=== PATIENT | male | born 1945 | race Caucasian/White ===

== ENCOUNTER 2022-09-30 11:04 | Outpatient (OUT) | payer MEDICARE, OTHER, SELFPAY ==
[2022-09-30 13:39] LABS: Prostate Specific Antigen Scrn 3.43 ng/mL (<=4.00)
[2022-09-30 16:40] LABS: Alanine Aminotransferase 33 U/L (16-63); Albumin Globulin Ratio 1.6; Albumin Level 4.3 g/dL (3.4-5.0); Alkaline Phosphatase 53 U/L (46-116); Anion Gap 13.5; Aspartate Amino Transferase 25 U/L (15-37); Bilirubin Total 0.6 mg/dL (0.2-1.0); Calcium 8.9 mg/dL (8.5-10.1); Carbon Dioxide 27.9 mmol/L (21.0-32.0); Chloride 106 mmol/L (98-107); Chol HDL Ratio 2.8; Cholesterol 136 mg/dL (<=200); Estimated GFR (African America >60 (>=60); Estimated GFR (Non-African Ame 55 (>=60); Globulin 2.7 g/dL; Glucose 91 mg/dL (74-106); HDL Cholesterol 48 mg/dL (40-60); LDL Cholesterol Calculated 68.4 mg/dL; Potassium 4.4 mmol/L (3.5-5.1); Sodium 143 mmol/L (136-145); Triglycerides 98 mg/dL (<=150); VLDL CHOLESTEROL 19.6 mg/dL
== END 2022-09-30 11:05 | disposition home or self-care (01) ==
PROVIDERS: PCP Internal Medicine
DX: E78.1 Pure hyperglyceridemia (principal); Z12.5 Encounter for screening for malignant neoplasm of prostate; I10 Essential (primary) hypertension
CPT/HCPCS: 36415; 80053; 80061; G0103

== ENCOUNTER 2023-02-25 09:36 | Outpatient (OUT) | payer MEDICARE, OTHER, SELFPAY ==
--- NOTE | 2023-02-25 10:01 | US_ITS ---
[address] [address] Patient Name: EVERARDO CHAVEZ MRN: [id number] date: 1945 Sex: M Assigned Patient Location: US Current Patient Location: US Accession/Order Number: [id number] Exam Date: 02/25/2023 10:10 Report Date: 02/25/2023 13:01 At the request of: ZITA BELLE Procedure: US scrotum EXAMINATION: US scrotum HISTORY: scrotum pain and swelling COMPARISON: No relevant comparison available. TECHNIQUE: High-resolution sonographic imaging of the scrotum and contents was performed. FINDINGS: The right testicle is normal in size, contour and homogeneous echotexture measuring 4.3 x 2.5 x 2.9 cm. No focal intratesticular mass. Normal color Doppler flow. The right epididymis is heterogeneous with punctate areas of hyperechogenicity likely representing calcification. No hypervascularity or focal mass. No right varicocele. Moderate right hydrocele. The left testicle is normal in size, contour and homogeneous echotexture measuring 3.5 x 2.1 x 2.5 cm. No focal intratesticular mass. Normal color Doppler flow. The left epididymis is heterogeneous with punctate areas of hyperechogenicity likely representing calcification. No hypervascularity or focal mass. Area of anechoic echogenicity measuring 1.2 cm, cyst versus spermatocele. No left varicocele. Moderate left hydrocele Incidental scrotal wall calcifications US/US scrotum IMPRESSION: Moderate bilateral hydroceles Electronically authenticated by: SHANNON LINDSEY Date: 02/25/2023 13:01
== END 2023-02-25 09:37 | disposition home or self-care (01) ==
LOC: US 09:36
PROVIDERS: PCP Internal Medicine; Visit Provider Internal Medicine
DX: N50.819 Testicular pain, unspecified (principal); N43.3 Hydrocele, unspecified
CPT/HCPCS: 76870

== ENCOUNTER 2025-01-22 08:16 | Outpatient (OUT) | payer MEDICARE, OTHER, SELFPAY ==
--- OUTSIDE RECORDS SUMMARY | 2025-01-08 08:00 | XMS_ITS | Encounter Summary ---
Author Organization [facility] Address [address] [place] [address] Care Team Providers Care Hand Bander Name Role Phone Richard Sosa MD Primary Care Provider [phone] TeteUbaldo sarmiento OD Unavailable Reason for Referral * Imaging (Routine) - AuthorizedSpecialtyDiagnoses / ProceduresReferred By ContactReferred To [facility] Diagnoses Left-sided tinnitus Procedures MR brain w and wo contrast IACs Kiara Hardy MD 112 [facility] [address] [place] [address] Phone: tel: fax: [place] [facility] [address] [place] [address] Phone: tel: fax: Referral IDStatusReasonStart DateExpiration DateVisits RequestedVisits [id number]/19/20255/ Reason for Visit * ReasonCommentsEar ProblemFollow up ears Audio 01/07/25 Encounter Details DateTypeDepartmentCare Team (Latest Contact Info)Yffmhomeayg92/18/2025 8:00 AM ESTOffice Visit [facility] 112 [facility] 130 [place] [address] Kiara Hardy MD 112 [facility] [address] [place] [address] Left-sided tinnitus (Primary Dx); Asymmetric SNHL (sensorineural hearing loss) Social History Tobacco UseTypesPacks/DayYears UsedDateSmoking Tobacco: NeverSmokeless Tobacco: NeverAlcohol UseStandard Drinks/WeekCommentsYes0 (1 standard drink = 0.6 oz pure alcohol)Caffeine intake ; 1-2 cups per day taa , coffeePHQ-2AnswerDate Recorded Patient Health Questionnaire-2 [id number] and Gender InformationValue Date RecordedSex Assigned at BirthNot on fileLegal BlaZwox8305/05/2022 7:09 PM EDT Gender IdentityNot on fileSexual OrientationNot on filedocumented as of this encounter Last Filed Vital Signs Vital SignReadingTime TakenCommentsBlood Vxlilemf130/6801/08/2025 7:52 AM EST Fypme479301/08/2025 7:52 AM ESTTemperature--Respiratory Rate--Oxygen Saturation-- Inhaled Oxygen Concentration--Dbohul09.2 kg (157 lb)01/08/2025 7:52 AM ESTHeight 165.1 cm (5' 5 )01/08/2025 7:52 AM ESTBody Mass Index26.13103/10/2024 7:52 AM EST documented in this encounter Progress Notes * Kiara Hardy MD - 01/08/2025 8:00 AM EST Subjective Patient ID: Perry Cardoso is a 79 y.o. 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 Also notes asymmetric left HL. Audio shows markedly asymmetric left HFSNHL and 84% disc on the left. No known acoustic trauma, but when worked at [employer] sound was louder on the left. Family History[1] Active Ambulatory Problems Diagnosis Date Noted Benign essential hypertension 07/13/2022 GERD (gastroesophageal reflux disease) 07/13/2022 Hiatal hernia 07/13/2022 Left ventricular hypertrophy 07/13/2022 Osteoarthritis of lumbar spine 07/13/2022 Primary osteoarthritis of left ankle 07/13/2022 Pure hypertriglyceridemia 07/13/2022 Shortness of breath on exertion 07/13/2022 Unspecified mononeuropathy of right lower limb 07/13/2022 Anemia 03/31/2023 Anticoagulated 03/31/2023 BPH with urinary obstruction 03/31/2023 Chronic prostatitis 03/31/2023 Elevated lipase 03/31/2023 Elevated PSA 03/31/2023 Nocturia 03/31/2023 Palpitations 11/02/[address] scan 04/01/2023 Hepatic cyst 11/19/2022 Renal cyst, right 11/19/2022 Age-related nuclear cataract of both eyes 04/25/2023 Primary open angle glaucoma (POAG) of both eyes, mild stage 04/25/2023 Dyspepsia 10/05/2024 Resolved Ambulatory Problems Diagnosis Date Noted Enlarged prostate without lower urinary tract symptoms (luts) 07/13/2022 Hypertension 03/31/2023 Screen for colon cancer 03/31/2023 Urine frequency 03/31/2023 Chronic GERD 03/31/2023 Dyspnea 11/02/2018 Hydrocele 10/03/2023 Past Medical History: Diagnosis Date Arthritis BPH (benign prostatic hyperplasia) Cataract Chest pain Ear problems Glaucoma Surgical History[2] Allergies[3] Medications Ordered Prior to Encounter[4] Objective Last Recorded Vitals Vitals: 01/08/25 0752 BP: 120/68 Pulse: 69 ENT Physical Exam Constitutional Appearance: patient appears well-developed, well-nourished and well-groomed, Communication/Voice: communication appropriate for developmental age; vocal quality normal; Assessment/Plan Diagnoses and all orders for this visit: Left-sided tinnitus Asymmetric SNHL (sensorineural hearing loss) Pt has markedly asymmetric left SNHL and left tinnitus suggesting an AN. MRI IAC and F/U. Recommendbil METCALF [1] Family History Problem Relation Name Age of Onset Cancer Mother Stroke Father Stroke Sibling Cancer Sibling [2] Past Surgical History: Procedure Laterality Date CATARACT EXTRACTION Bilateral CHOLECYSTECTOMY COLONOSCOPY 2005 CYSTOSCOPY 2018 EGD 05/07/2022 HERNIA REPAIR PROSTATE BIOPSY 1978 TONSILLECTOMY TRANSURETHRAL RESECTION OF PROSTATE 2016 TURP / TRANSURETHRAL INCISION / DRAINAGE PROSTATE 2017 VASECTOMY [3] Allergies Allergen Reactions Lisinopril Itching and Swelling Other Reaction(s): Swelling Latex Hives Milk-Related Compounds Wound Dressing Adhesive Hives [4] Current Outpatient Medications on File Prior to Visit Medication Sig Dispense Refill aspirin (Aspirin Low Dose) 81 MG EC tablet Take 81 mg by mouth in the morning. finasteride (Proscar) 5 MG tablet Take 1 tablet (5 mg) by mouth Daily (Patient taking differently: Take 5 mg by mouth in the morning.) 100 tablet 3 Multiple Vitamins-Minerals (Multivitamin Men) tablet in the morning. omeprazole (PriLOSEC) [address] capsule Take 1 capsule (40 mg) by mouth in the morning. Take before meals. 100 capsule 3 tamsulosin (Flomax) 0.4 MG 24 hr capsule Take 0.4 mg by mouth in the morning. triamterene-hydrochlorothiazide (Maxzide-25) 37.5-25 MG tablet Take 1 tablet by mouth Daily 100 tablet 3 No current facility-administered medications on file prior to visit. documented in this encounter Miscellaneous Notes * Addendum Note - Lona Gould MA - 01/08/2025 8:00 AM ESTAddended by: LONA GOULD on: 01/09/2025 09:57 AM Modules accepted: Orders documented in this encounter Plan of Treatment DateTypeDepartmentCare Team (Latest Contact Info)Vuvolaabrye49/23/2025 11:20 AM ESTOffice Visit [facility] [address] [facility] [address] [place] [phone] Kiara Hardy MD [address] [facility] [address] [place] [address] 04/08/2025 10:30 AM ESTOffice Visit [facility] [address] [facility] [address] [place] [phone] Richard Sosa MD [address] [facility] [address] [place] [address] NameTypePriorityAssociated DiagnosesOrder ScheduleMR brain w and wo contrast IACsImagingRoutine Left-sided tinnitus Expected: 01/09/2025, Expires: 01/09/2026documented as of this encounter Visit Diagnoses Diagnosis Left-sided tinnitus- Primary Unspecified tinnitus Asymmetric SNHL (sensorineural hearing loss) Sensorineural hearing loss, asymmetrical documented in this encounter Additional Health Concerns AssessmentNoted TimePHQ-9 Depression Total Score: 9:00 AM EDT documented as of this encounter Care Teams Team MemberRelationshipSpecialtyStart DateEnd Date Richard Sosa MD [address] [facility] [address] [place] [address] PCP - GeneralInternal Medicine06/29/22 Ubaldo Epstein OD [address] [place] [address] Referring PhysicianOptometry04/25/23documented as of this encounter
--- OUTSIDE RECORDS SUMMARY | 2025-01-22 08:18 | XMS_ITS | Clinical Summary ---
Author Organization [facility] Address [address] [place] [address] Care Team Providers Care Community Health Agent Name Role Phone Richard Sosa MD Primary Care Provider [phone] TeteUbaldo sarmiento OD Unavailable Allergies Active AllergyReactionsCriticalityNoted EijoEdhggcynNvgduIgapu59/23/2023 LisinoprilItching,ZrduepzzOpykzz98/16/2023 Other Reaction(s): Swelling Milk-Related Gmrtzrvhn70/18/2025Wound Dressing UevylflqKpcfk30/23/2023 Medications MedicationSigDispense QuantityRefillsLast FilledStart DateEnd DateStatus aspirin (Aspirin Low Dose) 81 MG EC tablet Take 81 mg by mouth in the morning.Active Multiple Vitamins-Minerals (Multivitamin Men) tablet in the morning.Active tamsulosin (Flomax) 0.4 MG 24 hr capsule Take 0.4 mg by mouth in the morning.Active omeprazole (PriLOSEC) [address] capsule Indications:Gastroesophageal reflux disease, unspecified whether esophagitis presentTake 1 capsule (40 mg) by mouth in the morning. Take before meals. 100 capsule 5Active triamterene-hydrochlorothiazide (Maxzide-25) 37.5-25 MG tablet Indications:Benign essential hypertensionTake 1 tablet by mouth Daily 100 tablet 5Active finasteride (Proscar) 5 MG tablet Indications:Elevated PSATake 1 tablet (5 mg) by mouth Daily 100 tablet 5Active Additional Information Patient taking differently:5 mg Oral Daily,Morning, Reported on 01/08/2025 Active Problems ProblemNoted DateDiagnosed KoemJldutqhrn18/15/2025ge-related nuclear cataract of both eyes04/25/2023rimary open angle glaucoma (POAG) of both eyes, mild stage04/25/2023bnormal CT scan04/01/2023 Overview (04/01/2023): 11/19/2022 CT ABD Yuqakh0503/31/20236614Rnlkkygqlzyusf17/08/2024PH with urinary wzvariylemr56/08/2024 Chronic htrkimkqakv09/08/2024Elevated rrlbkt9403/31/2023Elevated PSA03/31/2023 Yxoxyfgp86/08/2024Hepatic cyst11/19/2022Renal cyst, right11/19/2022enign essential eaixeanfalko23/23/2023ERD (gastroesophageal reflux disease)07/13/2022 Hiatal pyejjn4207/13/2022Left ventricular kewxggitlvd53/23/2023Osteoarthritis of lumbar spine07/13/2022rimary osteoarthritis of left ankle07/13/2022ure wynvjzsppoxrdjceexvw87/23/2023Shortness of breath on vkmoefna43/23/2023 Unspecified mononeuropathy of right lower limb07/13/20228844Maephseqopva45/12/2019 Resolved Problems ProblemNoted DateDiagnosed DateResolved HrnzFnrzkdals48 Hqfylifapfdz83Screen for colon esitvy29/01/2024Urine sugsltitk72hronic GERD/10/2023Enlarged prostate without lower urinary tract symptoms (luts)yspnea11/02/2018 10/03/2023 Encounters DateTypeDepartmentCare NspvLienhzapnrh78/18/2025 8:00 AM ESTOffice Visit [facility] [address] [place] [address] [place] [address] Kiara Hardy MD Left-sided tinnitus (Primary Dx); Asymmetric SNHL (sensorineural hearing loss)01/08/2025amboo flowsheet [facility] [address] [facility] [address] [place] [phone] Kiara Hardy MD 01/08/20252925Cjpstl41/17/2025 8:00 AM ESTClinical Support [facility] [address] [place] [address] [place] [address] Karen Manuel CCC-Santosh Sensorineural hearing loss (SNHL) of both ears (Primary Dx); Left-sided zbjlzhex82/17/2025amboo flowsheet [facility] [address] [facility] [address] [place] [phone] Karen Manuel CCC-A 10/29/2024Refill [facility] [address] [place] [address] [place] [phone] Brii Randle MA Elevated PSAfrom Last 3 Months Immunizations ImmunizationAdministration DatesNext TkmAVK3407/26/2021neumococcal Polysaccharide WIOI2897Td (adult), 5 Lf tetanus toxoid, preservative free, adsorbed 07/31/2007Tdap07/26/2021 Family History Medical HistoryRelationNameCommentsStrokeFatherCancerMotherCancerSiblingStroke SiblingRelationNameStatusCommentsFatherDeceasedMotherDeceasedSiblingAlive Social History Tobacco UseTypesPacks/DayYears UsedDateSmoking Tobacco: NeverSmokeless Tobacco: Never Tobacco Cessation:Counseling Given: Not Answered Alcohol UseStandard Drinks/WeekCommentsYes0 (1 standard drink = 0.6 oz pure alcohol)Caffeine intake ; 1-2 cups per day taa , coffeePHQ-2AnswerDate Recorded Patient Health Questionnaire-2 Anjdd416Sex and Gender InformationValue Date RecordedSex Assigned at BirthNot on fileLegal UngCvbb5805/05/2022 7:09 PM EDT Gender IdentityNot on fileSexual OrientationNot on file Last Filed Vital Signs Vital SignReadingTime TakenCommentsBlood Odxeafuz039/6811 7:52 AM EST Iwvnr369801/08/2025 7:52 AM ESTTemperature--Respiratory Eubk7380 9:21 AM EDTOxygen Cjpunbcyex97%10/03/2024 10:12 AM EDTInhaled Oxygen Concentration-- Jczvng27.2 kg (157 lb)01/08/2025 7:52 AM MOCSmowbe205.1 cm (5' 5 )01/08/2025 7:52 AM ESTBody Mass Index26.13103/10/2024 7:52 AM EST Plan of Treatment DateTypeDepartmentCare Team (Latest Contact Info)Sestwgaodhy98/23/2025 11:20 AM ESTOffice Visit [facility] [address] [facility] [address] [place] [phone] Kiara Hardy MD [address] [facility] [address] [place] [address] 04/08/2025 10:30 AM ESTOffice Visit [facility] [address] [facility] [address] [place] [address] Richard Sosa MD [address] [facility] [address] [place] [address] Health MaintenanceDue DateLast DoneCommentsPneumococcal Vaccine: 65+ Years (2 of 2 - PCV)COVID-19 Vaccine ( season)2024 Influenza Vaccine (#1)2024Medicare Annual Wellness (AWV)10/03/2025 10/03/2024, 10/03/2023, 09/30/2022, Additional history exists Procedures Procedure NamePriorityDate/TimeAssociated DiagnosisCommentsAUDITORY FUNCTION LFPNYEhdlivv23/17/2025 9:15 AM EST from Last 3 Months Results * Auditory function tests (01/07/2025 9:15 AM EST) Narrative Karen Manuel CCC-A - 01/07/2025 9:15 AM EST Right Ear: Mild sloping to severe sensorineural hearing loss from 500 Hz - 6K Hz rising to moderate sensorineural hearing loss at 8K Hz Left Ear: ?? Mild sloping to severe sensorineural hearing loss above 250 Hz Authorizing ProviderResult TypeResult StatusDekal Frost [facility]-AAUDIOLOGY SERVICES ORDERABLESFinal Result from Last 3 Months Insurance Care Teams Team MemberRelationshipSpecialtyStart DateEnd Richard Sosa MD [address] [address] PCP - GeneralInternal Medicine06/29/22 Ubaldo Epstein OD [address] [place] [address] Referring PhysicianOptometry04/25/23
--- OUTSIDE RECORDS SUMMARY | 2025-01-22 08:18 | XMS_ITS | Clinical Summary ---
Author Organization [facility] Address [address] [place] [address] Care Team Providers Care Cytologist Name Role Phone Unavailable Primary Care Provider Unavailabl e Social History Tobacco UseTypesPacks/DayYears UsedDateSmoking Tobacco: Never AssessedUT Safety & EnvironmentAnswerDate RecordedFear of Current or Ex-PartnerNot on file 04/14/2023Emotionally AbusedNot on file04/14/2023hysically AbusedNot on file 04/14/2023Sexually AbusedNot on file04/14/2023hysically or Sexually AbusedNot on file04/14/2023Sex and Gender InformationValueDate RecordedSex Assigned at BirthNot on fileLegal AvgCorn1808/19/2021 10:40 PM EDTGender IdentityNot on file Sexual OrientationNot on file Last Filed Vital Signs Vital SignReadingTime TakenCommentsBlood Yauevmbd456/8009 9:57 AM EDT Pulse--Temperature--Respiratory Rate--Oxygen Npfqbehsry69%11/02/2018 9:56 AM EDT Inhaled Oxygen Concentration--Cfqdrb71.4 kg (153 lb)11/02/2018 9:56 AM EDTHeight 165.1 cm (5' 5 )11/02/2018 9:55 AM EDTBody Mass Index25.46011/02/2018 9:55 AM EDT Plan of Treatment Health MaintenanceDue DateLast DoneCommentsMedicare Annual Wellness (AWV) 4Depression Bufoatawe16/31/1956Adult Hwnemdv5007/21/1965Pneumococcal Vaccine: 50+ Years (1 of 1 - PCV)07/21/1993Zoster Vaccines (1 of 2)07/21/1993 Fall Risk Oontfmwxe96/31/2009COVID-19 Vaccine (2024- season)2024 Influenza Vaccine (#1)2024HIB VaccinesAged OutNo longer eligible based on patient's age to complete this topicHPV VaccinesAged OutNo longer eligible based on patient's age to complete this topicIPV VaccinesAged OutNo longer eligible based on patient's age to complete this topicMeningococcal B VaccineAged OutNo longer eligible based on patient's age to complete this topicMeningococcal VaccineAged OutNo longer eligible based on patient's age to complete this topic Rotavirus VaccinesAged OutNo longer eligible based on patient's age to complete this topic [place] [address]
--- OUTSIDE RECORDS SUMMARY | 2025-01-22 08:18 | XMS_ITS | Clinical Summary ---
Author Organization [facility] Address [address] [place], [place] [address] Care Team Providers Care Tank Erector Name Role Phone Sierra NayakDong PATIENT ACCOUNTS SPECIALIST Unavailable [phone] Ian RIVERA MD, Richard Ellsworth Primary Care Provider [phone] Allergies Active AllergyReactionsCriticalityNoted DateCommentsLatexHives,Znbecfs9207/13/2022 LisinoprilItching,Fnktrerq74/16/2023 Medications MedicationSigDispense QuantityRefillsLast FilledStart DateEnd DateStatus aspirin, enteric coated (ASPIRIN, ENTERIC COATED) 81 mg EC tablet Take 81 mg by mouth.Active omeprazole (PRILOSEC) 40 mg capsule Take 40 mg by mouth.03/15/2022ctive finasteride (PROSCAR) 5 mg tablet Take 5 mg by mouth.07/08/2022ctive triamterene-hydroCHLOROthiazide (MAXZIDE-25) 37.5-25 mg per tablet Take 1 tablet by mouth every morning.04/12/2022ctive tamsulosin (FLOMAX) 0.4 mg Take 1 capsule by mouth every 12 hours.10/23/2022ctive latanoprost (XALATAN) 0.005 % ophthalmic solution 1 Drop.06/09/2022ctive brimonidine (ALPHAGAN) 0.2 % ophthalmic solution Use 1 Drop in eyes q 8 HR.12/04/2021ctive MULTIVITAMIN ORAL Refill(s) 0, Ayudeltkhge44/23/2023ctive Social History Tobacco UseTypesPacks/DayYears UsedDateSmoking Tobacco: NeverSmokeless Tobacco: Never Tobacco Cessation:Counseling Given: Not Answered Area Deprivation IndexAnswerDate RecordedNational Score (1-100), lower number is lower jerz331901/06/2023State Score (1-10), lower number is lower fqae19403/08/2022 Data from: https://www.neighborhoodatlas.medicine.[facility]/. Last address used for kdfzhioxvvp[address]01/06/2023Sex and Gender InformationValueDate RecordedSex Assigned at BirthNot on fileLegal JesKczg55/20/2023 4:15 PM EDT Gender IdentityNot on fileSexual OrientationNot on file Last Filed Vital Signs Vital SignReadingTime TakenCommentsBlood Ylbepfuf223/7301/06/2023 10:20 AM EST Finza765301/06/2023 10:20 AM WZLDmbzcezhsrs52.1 ??C (97 ??F)01/06/2023 10:20 AM ESTRespiratory Rate--Oxygen Ddqqgvbqlh63%01/06/2023 10:20 AM ESTInhaled Oxygen Concentration--Rozlce23.1 kg (159 lb)01/06/2023 10:20 AM TVGHymauz549.1 cm (5' 5 )01/06/2023 10:20 AM ESTBody Mass Index26.4601/06/2023 10:20 AM EST Plan of Treatment Health MaintenanceDue DateLast DoneCommentsAnxiety Zskdejfnw39/31/1962Depression Ofkdlxxij92/31/1962Diabetes Xqsjqxhfq78/31/1989Shingrix Vaccine (1 of 2) 07/21/1993Pneumococcal Vaccine: 50+ (2 of 2 - PCV)RSV Vaccine (1 - 1-dose 75+ series)07/21/2018Advance Directive Xervgxiekq10/01/2025 Covid-19 Vaccine ( - 2024- season)2024Influenza Vaccine (#1)2024 DTaP,Tdap,Td Vaccine (3 - Td or Tdap), 07/26/2021, 07/31/[address] [place] [id number] Care Teams Team MemberRelationshipSpecialtyStart DateEnd Richard Sosa II, MD [address] [facility] [address] [place] [address] PCP - GeneralInternal Ilsplwmo27/8/23 Sierra Nayak, PATIENT ACCOUNTS SPECIALIST [address] [place] [address] ReferringFavaly Trmamhna56/30/23
--- OUTSIDE RECORDS SUMMARY | 2025-01-22 08:18 | XMS_ITS | Encounter Summary ---
Author Organization [facility] Address [address] [place] [address] Care Team Providers Care Corn Lab Technician Name Role Phone Richard Sosa MD Primary Care Provider [phone] TeteUbaldo sarmiento OD Unavailable Encounter Details DateTypeDepartmentCare Team (Latest Contact Info)Zdmfqkjghrb99/18/2025amboo flowsheet [facility] [address] [facility] [address] [place] [phone] Kiara Hardy MD [address] [place] [address] Social History Tobacco UseTypesPacks/DayYears UsedDateSmoking Tobacco: NeverSmokeless Tobacco: NeverAlcohol UseStandard Drinks/WeekCommentsYes0 (1 standard drink = 0.6 oz pure alcohol)Caffeine intake ; 1-2 cups per day taa , coffeePHQ-2AnswerDate Recorded Patient Health Questionnaire-2 Mbjab514Sex and Gender InformationValue Date RecordedSex Assigned at BirthNot on fileLegal EjaFqcy8505/05/2022 7:09 PM EDT Gender IdentityNot on fileSexual OrientationNot on filedocumented as of this encounter Plan of Treatment DateTypeDepartmentCare Team (Latest Contact Info)Jcaueycuhju22/23/2025 11:20 AM ESTOffice Visit [facility] [address] [place] [address] [place] [phone] Kiara Hardy MD [address] [place] [address] 04/08/2025 10:30 AM ESTOffice Visit [facility] [address] [place] [address] [place] [address] Richard Sosa MD [address] [facility] [address] [place], [place] [phone] documented as of this encounter Visit Diagnoses Not on filedocumented in this encounter Additional Health Concerns AssessmentNoted TimePHQ-9 Depression Total Score: 9:00 AM EDT documented as of this encounter Care Teams Team MemberRelationshipSpecialtyStart DateEnd Date Richard Sosa MD [address] [place] [address] PCP - GeneralInternal Medicine06/29/22 Ubaldo Epstein OD [address] [place] [address] Referring PhysicianOptometry04/25/23documented as of this encounter
--- OUTSIDE RECORDS SUMMARY | 2025-01-22 08:18 | XMS_ITS | Encounter Summary ---
Author Organization [facility] Address [address] [place] [address] Care Team Providers Care Cake Puncher Name Role Phone Richard Sosa MD Primary Care Provider [phone] Ubaldo Epstein OD Unavailable Encounter Details DateTypeDepartmentCare Team (Latest Contact Info)Uqhngmxokjy82/18/2025Travel Social History Tobacco UseTypesPacks/DayYears UsedDateSmoking Tobacco: NeverSmokeless Tobacco: NeverAlcohol UseStandard Drinks/WeekCommentsYes0 (1 standard drink = 0.6 oz pure alcohol)Caffeine intake ; 1-2 cups per day taa , coffeePHQ-2AnswerDate Recorded Patient Health Questionnaire-2 [id number] and Gender InformationValue Date RecordedSex Assigned at BirthNot on fileLegal VjnQeyo4505/05/2022 7:09 PM EDT Gender IdentityNot on fileSexual OrientationNot on filedocumented as of this encounter Plan of Treatment DateTypeDepartmentCare Team (Latest Contact Info)Nkiayvcwgzs50/23/2025 11:20 AM ESTOffice Visit [facility] [address] [place] [address] Kiara Hardy MD [address] [place], [place] [id number] 04/08/2025 10:30 AM ESTOffice Visit [facility] [address] [place] [address] Richard Sosa MD [address] [place] [address] documented as of this encounter Visit Diagnoses Not on filedocumented in this encounter Additional Health Concerns AssessmentNoted TimePHQ-9 Depression Total Score: 9:00 AM EDT documented as of this encounter Care Teams Team MemberRelationshipSpecialtyStart DateEnd Date Richard Sosa MD [address] [facility] [address] [place] [address] PCP - GeneralInternal Medicine06/29/22 Ubaldo Epstein OD [address] [place] [id number] Referring PhysicianOptometry04/25/23documented as of this encounter
--- NOTE | 2025-01-22 08:25 | MR_ITS ---
[address] [address] Patient Name: EVERARDO CHAVEZ MRN: [id number] date: 1945 Sex: M Assigned Patient Location: LAB Current Patient Location: LAB Accession/Order Number: [id number] Exam Date: 01/22/2025 09:00 Report Date: 01/22/2025 10:55 At the request of: TRISTIN BAEZ MD Procedure: MR head/brain wo/w con MR head/brain wo/w con 01/22/2025 10:15 AM SIGN AND SYMPTOMS: ^Left Sided Tinnitus PROTOCOL: Multiplanar multisequence MR images of the brain with and without IV contrast COMPARISON: None. FINDINGS: Extra axial spaces: There is mild age-related cortical atrophy. Hemorrhage: None. Ventricular system: Within normal limits. Basal cisterns: Within normal limits and not effaced. Cerebral parenchyma: Their is periventricular white matter T2 and FLAIR hyperintense signal consistent with mild chronic microvascular ischemic change. Midline shift: None.. Cerebellum: Within normal limits. Brainstem: Within normal limits. Internal auditory canals: No mass or abnormal enhancement. Temporal bone structures: Within normal limits. Cerebellopontine angles: No mass or abnormal enhancement. OTHER: Calvarium: Normal marrow signal. Vascular system: Satisfactory flow voids within the anterior and posterior circulation. Visualized Paranasal sinuses: Within normal limits. Visualized Orbits: Within normal limits. Visualized upper cervical spine: Within normal limits. Sella and skull base: Within normal limits. MR/MR head/brain wo/w con IMPRESSION: The cerebellopontine angles, temporal bone structures, and internal auditory canals are within normal limits. No mass or abnormal enhancement. Chronic age-related neurodegenerative changes are noted as above. Impression dictated by: Ubaldo Xiong M.D. 01/22/2025 10:55 AM Dictation Location: [place] [address] Electronically authenticated by: [id number] Y Date: 01/22/2025 10:55
[2025-01-22 08:32] LABS: Estimated GFR (African America >60 (>=60 mL/min/1.73m^2); Estimated GFR (Non-African Ame 51 (>=60 mL/min/1.73m^2)
== END 2025-01-22 08:17 | disposition home or self-care (01) ==
LOC: LAB 08:16
PROVIDERS: Pathology Anatomic Pathology & Clinical Pathology; PCP Internal Medicine; Visit Provider Otolaryngology
DX: Z01.818 Encounter for other preprocedural examination (principal); H93.12 Tinnitus, left ear
CPT/HCPCS: 36415; 70553; 82565; A9575